=== PATIENT | female | born 1965 | race Caucasian/White ===

== ENCOUNTER 2022-08-13 15:42 | Emergency (ER) | payer BC, OTHER, SELFPAY ==
--- NOTE | ~2022-08-13 | CT_ITS ---
EXAMINATION: NONCONTRAST HEAD CT NONCONTRAST MAXILLOFACIAL CT INDICATION INFORMATION: Headache, dizziness, facial trauma. COMPARISON: No similar priors. TECHNIQUE: Separate noncontrast CT examinations of the head and maxillofacial bones were performed. Coronal and sagittal images were created for each examination at the technologist workstation. This CT examination was performed using dose optimization techniques as appropriate, variously including the following: *Automated exposure control *Adjustment of mA and/or kV according to patient size (this includes techniques or standardized protocols for targeted exams where dose is matched to indication/reason for exam; i.e. extremities or head) *Use of iterative reconstruction technique DLP: 367 mGy-cm FINDINGS: Head: There is no evidence of acute intracranial hemorrhage or territorial infarction. No abnormal mass effect or midline shift is seen. Hodges to white matter differentiation is well preserved. No extra-axial fluid collections are identified. No hydrocephalus. Proportional prominence of the ventricles and sulcal spaces is consistent with mild volume loss. Patchy periventricular and deep white matter hypoattenuation is consistent with mild small vessel ischemic changes. No acute soft tissue abnormality. No calvarial fracture. The mastoid air cells are well aerated. Maxillofacial: No acute maxillofacial fractures are seen. The frontal, maxillary, ethmoid, and sphenoid sinuses are well aerated. The mandibular heads are well-seated in the condylar fossa. Degenerative changes of the right greater than left temporomandibular joints. The orbits demonstrate a normal appearance bilaterally. The globes are intact, and there are no suspicious findings to suggest retrobulbar hemorrhage. Visualized portions of the cervical spine with no acute traumatic subluxation or fracture, and with multilevel cervical spondylosis. CT/CT facial bones wo IV con IMPRESSION: 1. No acute intracranial abnormalities. 2. No acute maxillofacial fractures.
[2022-08-13 15:25] VITALS: BP 177/92; PULSE 65; O2SAT 98
--- NOTE | 2022-08-13 15:31 | ED.HEATRA ---
HPI - Head Injury General Chief complaint: General Medical Stated complaint: facial pain Time Seen by Provider: 08/13/22 18:12 Source: patient and RN notes reviewed Mode of arrival: ambulatory Limitations: no limitations History of Present Illness HPI Narrative: 57 yo female, with a history of hypertension, hyperlipidemia, and thyroid disease, presenting today with complaints of facial pain and bruising after being struck in the face by a wooden bowl. She states that she was carving a wooden bowl on a lathe at 1500rpm and it flew off the lathe and struck her in the face. She states that she did not lose consciousness and felt ok after the injury. She woke up this morning with dizziness and a headache. Denies any nausea or vomiting. MD Complaint: head injury Onset (ago): day(s) Place: home Loss of Consciousness: no Location of injury: face Severity: moderate Quality: aching Radiation: none Other Injuries: none Associated symptoms: denies other symptoms Related Data Allergies Allergy/AdvReac Type Severity Reaction Status Date / Time No Known Allergies Allergy Unverified 03/03/20 18:52 [No Known Allergies*] Review of Systems Review of Systems: Yes all other systems are reviewed and are negative [facility] Social History Social History Advance Directives: No Advance Directives Information Provided: Yes Physical Exam Vital Signs: Vital Signs: Last Vital Signs Temp 98.3 F 08/13/22 15:33 Pulse 89 08/13/22 18:19 Resp 18 08/13/22 15:33 BP 185/89 H 08/13/22 18:19 Pulse Ox 98 08/13/22 18:19 O2 Del Method 08/13/22 18:19 BMI result Body Mass Index 28.3 Appearance: Alert. Oriented X3. No acute distress. HEENT: normal inspection, EOMI, PERRLA; CVS: Normal heart rate and rhythm. Pulses normal. Respiratory: No respiratory distress. Skin: Bilateral ecchymosis noted infraorbitally, small hematoma in the medial canthus of the left eye. Superficial abrasion noted to the bridge of the nose. Skin warm and dry. Normal skin color. Normal skin turgor. No rashes. Extremities: Moving upper and lower extremities well. Neuro: Oriented X 3. No motor deficit. No sensory deficit. Steady gait. Nonfocal Course Course Course Narrative: 57 yo F, with a history of hypertension, hyperlipidemia, and thyroid disease, presenting today with complaints of facial pain since yesterday after she was struck in the face with a piece of wood that flew off a lathe at 1500rpm. Pt reports that she iced her face after the incident and felt ok, but woke up this morning with dizziness, blurred vision, and headaches. Patient is hypertension at 180/102, all other vital signs stable. PERRL and EOMI intact. Denies neck pain. ecchymosis noted inferiorly to bilateral eyes with mild edema overlying the nasal bridge. Plan: CT head and facial bones ordered Reevaluation(s) Reevaluation #1: CT head and facial bones are normal. BP still elevated. Advised to monitor BP closely at home with cuff. Pt stable for discharge. Time: 18:20 Medical Decision Making Differential Diagnosis Differential Diagnoses: The differential diagnosis associated with the presentation includes closed head injury, concussion, orbital fracture, contusion Independent Interpretation I performed an independent interpretation of an: CT Scan Interpretation: agree with radiology reading, no visualized fractures, no ICH Radiology Impression Discussion of test interpretation with radiology: I have reviewed the radiologist's reading. Radiologist Impression: CT/CT head/brain wo IV con IMPRESSION: 1.? No acute intracranial abnormalities. 2.? No acute maxillofacial fractures. Prescription Management I considered prescription management with: Pain Medication Chronic Conditions Patient?s care impacted by: Hypertension Discharge Plan Discharge Clinical Impression: Closed head injury Patient Disposition: Home, Self-Care Additional Instructions: Your CT scans performed today showed no facial fractures. Please get plenty of physical and mental rest. You may take ibuprofen or tylenol as needed for pain. Follow up with your primary care physician. If you develop new or worsening symptoms call 911 or come back to the ER for further evaluation. Referrals: Jl Carlson MD [Physician] - Interventions: ED Discharge Assessment Last Done: 08/13/22 18:22 Discharge Date/Time: 08/13/22 18:24
[2022-08-13 15:33] VITALS: BP 180/102; PULSE 68; RESP 18; TEMP 36.8; O2SAT 98; BMI 28.3
[2022-08-13 18:19] VITALS: BP 185/89; PULSE 89; O2SAT 98
== END 2022-08-13 18:24 | disposition home or self-care (01) ==
LOC: HO.ED 18:21
PROVIDERS: Emergency Provider Emergency Medicine
DX: S09.90XA Unspecified injury of head, initial encounter (principal); W20.8XXA Other cause of strike by thrown, projected or falling object, initial encounter; I10 Essential (primary) hypertension; E78.5 Hyperlipidemia, unspecified; Y93.89 Activity, other specified; Y92.9 Unspecified place or not applicable; Y99.9 Unspecified external cause status
CPT/HCPCS: 70450; 70486; 99282; 99284